=== PATIENT | female | born 1955 | race Caucasian/White ===

== ENCOUNTER → 2016-11-28 | Outpatient (CLI) | payer OTHER ==
[~2016-11-28] MED LIST: ADVAIR 250-501 EAC1 IH; ADVAIR 250-501 EACH IH; ALBUTEROL17 GM INH; ALL DAY ALLERGY10 M3 PO; ALPRAZOLAM XR1 MG PO; AMITRIPTYLINE H25 MG PO; AMITRIPTYLINE H50 MG PO; ASPIRIN81 M2 PO; ASPIRIN81 MG PO; ATARAX PO; AZITHROMYCIN1 GM PO; BACLOFEN10 MG PO; BRILINTA90 MG PO; CARDIZEM CD PO; CLARITIN10 M3 PO; CLEOCIN150 MG DOB; COLACE PO; DIAZEPAM PO; DILTIAZEM 24HR180 M1 PO; FENOFIBRATE160 MG PO; FENOGLIDE40 MG PO; FLEXERIL PO; HCTZ PO; HYDROCHLOROTHIA25 MG PO; HYDROCODON-ACE1 EAC9 PO; HYDROCODON-ACE1 EACH; IMDUR-ER60 MG PO; LASIX PO; LEVAQUIN PO; LIDOCAINE PATCH TOP; LIPITOR PO; LIPITOR80 MG PO; LISINOPRIL2.5 MG PO; LORTAB 7.5-5001 TAB PO; METFORMIN HCL500 M1 PO; METOPROLOL TART25 MG PO; MONTELUKAST SOD10 MG PO; NEURONTIN600 MG PO; NIACIN PO; NITROSTAT0.4 MG SL; NORVASC PO; OMEPRAZOLE20 M1 PO; OMEPRAZOLE40 MG PO; PEPCID PO; PERCOCET 10/3251 TAB PO; PERCOCET 7.5-31 EACH PO; PLAVIX PO; PRAVASTATIN SOD40 MG PO; PREVACID PO; PRILOSEC20 MG PO; ROBITUSSIN A-C-S1 ML PO; SIMVASTATIN40 MG PO; SUMATRIPTAN SU100 MG PO; SYMBICORT INH; SYNTHROID PO; SYNTHROID0.05 MG PO; TAMIFLU75 M1; TAMIFLU75 M1 PO; TRIGLIDE160 M1 PO; ULTRAM PO; VITAMIN D1000 UNI1 PO; ZESTRIL5 MG PO; ZOCOR PO; ZOVIRAX800 MG PO
--- NOTE | ~2016-11-28 | CT98 ---
[facility] A Service of [facility] RADIOLOGY TEXT RESULTS PATIENT: GEORGE ORANTES LOCATION: [place] : 59 UNIT #: [id number] AGE: [address]: Tex Hsu MD SEX: F ORDER DR: [id number] [facility] [address] [place], [place] [address] [id number] O MR#: [id number] Acc #: [id number] NAME: GEORGE ORANTES. : 1955 SEX: F STUDY DATE/TIME: 11/28/2016 7:53 UNIT: [place] ROOM: STUDY DESCRIPTION: CT Lumbar Spine Wo Cont Attending Physician: Tex Hsu M.D. Referring Physician: Tex Hsu M.D. Ordering Physician: Tex Hsu M.D. Primary Care Physician: Radha Suarez M.D. MEDICAL IMAGING REPORT This report is preliminary unless electronic signature is present EXAM Lumbar spine CT no contrast, 11/28/2016 PROCEDURE Axial unenhanced lumbar CT with multiplanar reformats. This CT exam was performed with one or more of the following radiation dose reduction techniques: automatic exposure control, adjustment of mA and/or kV according to patient size, and iterative reconstruction. HISTORY Low back pain for 10 years, recently worsening with left leg numbness and pain. FINDINGS Alignment is normal. There is no fracture or bone erosion or destruction. The paraspinous soft tissues are unremarkable. There is some mild sacroiliac degenerative change. At L1-2, the disc, canal and foramina are normal. At L2-3, there is mild facet degeneration but the disc, canal and foramina are normal. At L3-4, there is a slight disc bulge and mild facet degeneration and borderline to mild canal narrowing, and borderline or borderline to mild right and left foraminal narrowing. At 4-5, there is disc and endplate change and facet arthropathy and borderline canal narrowing and mild to moderate right and mild left foraminal narrowing. [facility] A Service of [facility] RADIOLOGY TEXT RESULTS PATIENT: GEORGE ORANTES LOCATION: [place] : 59 UNIT #: [id number] AGE: [address]: Tex Hsu MD SEX: F ORDER DR: At 5-1, there is some mild facet degeneration but no canal or foraminal stenosis. IMPRESSION Modest lumbar degenerative change. Generally minimal canal and/or foraminal compromise changes, fairly modest but most pronounced at 4-5 and slightly less prominent at 3-4. See above for [id number] details. Dictated by... Bradly Lujan M.D. THIS IS AN ELECTRONICALLY VERIFIED REPORT Bradly Lujan M.D. at 11/29/2016 3:53 PM CYNDY/jessica TD: 11/29/2016 14:42 JOB #: [id number] MEDICAL IMAGING REPORT Page 1 of 1 COPY
== END | disposition home or self-care (01) ==
LOC: CCAT 07:36
DX: M51.36 Other intervertebral disc degeneration, lumbar region (principal); M51.86 Other intervertebral disc disorders, lumbar region; M48.06 Spinal stenosis, lumbar region; M47.896 Other spondylosis, lumbar region
CPT/HCPCS: 72131